=== PATIENT | female | born 1990 | race Caucasian/White ===

== ENCOUNTER 2019-04-26 14:57 | Observation (INO) | payer BC, OTHER ==
[2019-04-26] MEDS ORDERED: SODIUM CHLORIDE 0.9% 1,000 ML IV ONE (15:32)
--- NOTE | 2019-04-26 15:36 | ED ---
General Adult HPI - General Source: patient, RN notes reviewed Mode of arrival: ambulatory Limitations: no limitations <Franky Hutchins - Last Filed: 04/26/19 17:43> <Colleen Chen - Last Filed: 05/02/19 02:08> - General Chief complaint: Vaginal Bleeding Stated complaint: 18 weeks, vaginal bleeding Time Seen by Provider: 04/26/19 15:23 - History of Present Illness Initial comments: 28-year-old female currently 18 weeks with a last menstrual period of 12/13/2018 presents to the emergency department for a chief complaint of vaginal bleeding. Patient states she had some bright red spotting earlier this morning around 10 AM which then turned into a darker brown discharge. States that about an hour ago she started having heavier bleeding. Denies passing tissue. Patient states she has had a confirmed intrauterine . States she is due for her anatomy ultrasound next week. States she has been following with Dr. Anaya for this . Patient denies any complications at her past 2 pregnancies. Patient does admit to cramping lower abdominal and back pain. Patient has no other complaints at this time including shortness of breath, chest pain, nausea or vomiting, headache, or visual changes. (Franky Hutchins) - Related Data Home Medications Medication Instructions Recorded Confirmed Mtu-Josu-Shrlp Acid 1 cap PO DAILY 04/26/19 04/26/19 [-U Capsule (formulary)] Allergies Allergy/AdvReac Type Severity Reaction Status Date / Time No Known Allergies Allergy Verified 04/26/19 17:29 Review of Systems ROS Other: All systems not noted in ROS Statement are negative. <Franky Hutchins - Last Filed: 04/26/19 17:43> ROS Other: All systems not noted in ROS Statement are negative. <Colleen Chen - Last Filed: 05/02/19 02:08> ROS Statement: Those systems with pertinent positive or pertinent negative responses have been documented in the HPI. Past Medical History Past Medical History: No Reported History Additional Past Medical History / Comment(s): HX BLOOD IN STOOL, HX OF POLYPS History of Any Multi-Drug Resistant Organisms: None Reported Past Surgical History: No Surgical Hx Reported Additional Past Surgical History / Comment(s): COLONOSCOPY Past Anesthesia/Blood Transfusion Reactions: No Reported Reaction Past Psychological History: No Psychological Hx Reported Smoking Status: Never smoker Past Alcohol Use History: None Reported Past Drug Use History: None Reported - Past Family History Brother(s) History Unknown: Yes Additional Family Medical History / Comment(s): epilepsy <Franky Hutchins P - Last Filed: 04/26/19 17:43> General Exam Limitations: no limitations General appearance: alert, in no apparent distress Head exam: Present: atraumatic, normocephalic, normal inspection Eye exam: Present: normal appearance, PERRL, EOMI. Absent: scleral icterus, conjunctival injection, periorbital swelling ENT exam: Present: normal exam, mucous membranes moist Neck exam: Present: normal inspection, full ROM. Absent: tenderness, meningismus, lymphadenopathy Respiratory exam: Present: normal lung sounds bilaterally. Absent: respiratory distress, wheezes, rales, rhonchi, stridor Cardiovascular Exam: Present: regular rate, normal rhythm, normal heart sounds. Absent: systolic murmur, diastolic murmur, rubs, gallop, clicks GI/Abdominal exam: Present: soft, normal bowel sounds. Absent: distended, tenderness, guarding, rebound, rigid External exam: Present: normal external exam. Absent: erythema, swelling, lesions, lacerations, ecchymosis Speculum exam: Present: vaginal bleeding (Minimal vaginal bleeding, no significant hemorrhage.). Absent: normal speculum exam, erythema, vaginal discharge, cervical discharge, foreign body, tissue, laceration By manual exam: Present: normal by manual exam. Absent: cervical motion tenderness, adnexal tenderness, adnexal mass, uterine enlargement, uterine tenderness, other (Adrien BURKS present for exam) <Franky Hutchins P - Last Filed: 04/26/19 17:43> Course Vital Signs 04/26/19 04/26/19 15:04 17:02 Temperature 98.3 F 98.2 F Pulse Rate 111 H 92 Respiratory 18 16 Rate Blood Pressure 142/88 136/86 O2 Sat by Pulse 98 100 Oximetry Medical Decision Making - Lab Data Result diagrams: 04/26/19 15:41 04/26/19 15:41 <Franky Hutchins P - Last Filed: 04/26/19 17:43> - Lab Data Result diagrams: 04/27/19 06:15 04/26/19 15:41 <Colleen Chen - Last Filed: 05/02/19 02:08> - Medical Decision Making 28-year-old female currently 18 weeks presents for vaginal bleeding and cramping 6 dhours. Pelvic exam did reveal mild vaginal bleeding. CBC CMP unremarkable. Urine does show 182 red blood cells. 38 white blood cells are likely secondary to red blood cells however culture pending. Patient is O+, not a candidate for RhoGAM. Ultrasound reveals echogenic material at the cervical eyes extending towards the edge of the placenta. Marginal placental abruption hemorrhages felt to be most likely within the differential. This does not appear to be a placenta previa or marginal placenta. This was discussed with Dr. Wise, OB on-call for Dr. Anaya. At this time recommends admitting patient for monitoring. Dr. Chen spoke with patient about this and patient is agreeable to this. She is hemodynamically stable at this time with only minimal vaginal bleeding. (Franky Hutchins) I was available for consultation in the emergency department. The history and physical exam were done by the midlevel provider. I was consulted for this patients care. I reviewed the case with the midlevel provider and based on their presentation of the patient, I agree with the assessment, medical decision making and plan of care as documented. I evaluated the patient myself and spoke with Dr. Castillo who accepted admission. Chart was dictated using [employer] dictation software. Attempts were made to correct any dictation errors however some typographical errors may persist. (Colleen Chen) - Lab Data Lab Results 04/26/19 04/26/19 04/26/19 Range/Units 15:30 15:30 15:41 WBC (3.8-10.6) k/uL RBC (3.80-5.40) m/uL Hgb (11.4-16.0) gm/dL Hct (34.0-46.0) % MCV (80.0-100.0) fL MCH (25.0-35.0) pg MCHC (31.0-37.0) g/dL RDW (11.5-15.5) % Plt Count (150-450) k/uL Neutrophils % % Lymphocytes % % Monocytes % % Eosinophils % % Basophils % % Neutrophils # (1.3-7.7) k/uL Lymphocytes # (1.0-4.8) k/uL Monocytes # (0-1.0) k/uL Eosinophils # (0-0.7) k/uL Basophils # (0-0.2) k/uL Sodium (137-145) mmol/L Potassium (3.5-5.1) mmol/L Chloride (98-107) mmol/L Carbon Dioxide (22-30) mmol/L Anion Gap mmol/L BUN (7-17) mg/dL Creatinine (0.52-1.04) mg/dL Est GFR (CKD-EPI)AfAm (>60 ml/min/1.73 sqM) Est GFR (CKD-EPI)NonAf (>60 ml/min/1.73 sqM) Glucose (74-99) mg/dL Calcium (8.4-10.2) mg/dL Total Bilirubin (0.2-1.3) mg/dL AST (14-36) U/L ALT (9-52) U/L Alkaline Phosphatase (38-126) U/L Total Protein (6.3-8.2) g/dL Albumin (3.5-5.0) g/dL Urine Color Dark Red Urine Appearance Cloudy H (Clear) Urine pH 5.5 (5.0-8.0) Ur Specific [place] >1.050 H (1.001-1.035) Urine Protein 1+ H (Negative) Urine Glucose (UA) Negative (Negative) Urine Ketones Trace H (Negative) Urine Blood Large H (Negative) Urine Nitrite Negative (Negative) Urine Bilirubin Negative (Negative) Urine Urobilinogen <2.0 (<2.0) mg/dL Ur Leukocyte Esterase Small H (Negative) Urine RBC >182 H (0-5) /hpf Urine WBC 38 H (0-5) /hpf Ur Squamous Epith Cells 4 (0-4) /hpf Urine Bacteria Few H (None) /hpf Urine Mucus Many H (None) /hpf Urine HCG, Qual Detected (Not Detectd) Blood Type O Positive Blood Type Recheck O Pos Bld Type Recheck Status No 04/26/19 04/26/19 Range/Units 15:41 15:41 WBC 11.4 H (3.8-10.6) k/uL RBC 4.88 (3.80-5.40) m/uL Hgb 14.8 (11.4-16.0) gm/dL Hct 42.5 (34.0-46.0) % MCV 87.0 (80.0-100.0) fL MCH 30.4 (25.0-35.0) pg MCHC 34.9 (31.0-37.0) g/dL RDW 12.8 (11.5-15.5) % Plt Count 249 (150-450) k/uL Neutrophils % 74 % Lymphocytes % 20 % Monocytes % 4 % Eosinophils % 1 % Basophils % 0 % Neutrophils # 8.4 H (1.3-7.7) k/uL Lymphocytes # 2.3 (1.0-4.8) k/uL Monocytes # 0.4 (0-1.0) k/uL Eosinophils # 0.1 (0-0.7) k/uL Basophils # 0.0 (0-0.2) k/uL Sodium 137 (137-145) mmol/L Potassium 4.7 (3.5-5.1) mmol/L Chloride 105 (98-107) mmol/L Carbon Dioxide 24 (22-30) mmol/L Anion Gap 8 mmol/L BUN 7 (7-17) mg/dL Creatinine 0.61 (0.52-1.04) mg/dL Est GFR (CKD-EPI)AfAm >90 (>60 ml/min/1.73 sqM) Est GFR (CKD-EPI)NonAf >90 (>60 ml/min/1.73 sqM) Glucose 87 (74-99) mg/dL Calcium 9.6 (8.4-10.2) mg/dL Total Bilirubin 0.3 (0.2-1.3) mg/dL AST 22 (14-36) U/L ALT 32 (9-52) U/L Alkaline Phosphatase 93 (38-126) U/L Total Protein 6.9 (6.3-8.2) g/dL Albumin 4.0 (3.5-5.0) g/dL Urine Color Urine Appearance (Clear) Urine pH (5.0-8.0) Ur Specific [place] (1.001-1.035) Urine Protein (Negative) Urine Glucose (UA) (Negative) Urine Ketones (Negative) Urine Blood (Negative) Urine Nitrite (Negative) Urine Bilirubin (Negative) Urine Urobilinogen (<2.0) mg/dL Ur Leukocyte Esterase (Negative) Urine RBC (0-5) /hpf Urine WBC (0-5) /hpf Ur Squamous Epith Cells (0-4) /hpf Urine Bacteria (None) /hpf Urine Mucus (None) /hpf Urine HCG, Qual (Not Detectd) Blood Type Blood Type Recheck Bld Type Recheck Status Disposition Is patient prescribed a controlled substance at d/c from ED?: No Time of Disposition: 17:45 <Franky Hutchins - Last Filed: 04/26/19 17:43> <Colleen Chen - Last Filed: 05/02/19 02:08> Clinical Impression: Vaginal bleeding during Disposition: ADMITTED IP TO THIS HOSP Condition: Stable
[2019-04-26 15:52] LABS: Appearance,Urine Cloudy (Clear); Bacteria,Urine Few /hpf; Bilirubin,Urine Negative (Negative); Blood,Urine Large (Negative); Color,Urine Dark Red; Glucose,Urine (UA) Negative (Negative); Ketones,Urine Trace (Negative); Leukocyte Esterase,Urine Small (Negative); Mucus,Urine Many /hpf; Nitrite,Urine Negative (Negative); PH, Urine 5.5 (5.0-8.0); Protein,Urine 1+ (Negative); RBC,Urine >182 /hpf (0-5); Squamous Epithelial Cell,Urine 4 /hpf (0-4); Urobilinogen,Urine <2.0 mg/dL (<2.0); WBC,Urine 38 /hpf (0-5)
[2019-04-26 15:55] LABS: Specific Gravity,Urine >1.050 (1.001-1.035)
[2019-04-26 15:57] LABS: Basophils % (A) 0 %; Eosinophils # (A) 0.1 k/uL (0-0.7); Eosinophils % (A) 1 %; HCT 42.5 % (34.0-46.0); HGB 14.8 gm/dL (11.4-16.0); Lymphocytes # (A) 2.3 k/uL (1.0-4.8); Lymphocytes % (A) 20 %; MCH 30.4 pg (25.0-35.0); MCHC 34.9 g/dL (31.0-37.0); Mean Platelet Volume 5.8; Monocytes # (A) 0.4 k/uL (0-1.0); Monocytes % (A) 4 %; Neutrophils # (A) 8.4 k/uL (1.3-7.7); Neutrophils % (A) 74 %; Platelet Count 249 k/uL (150-450); RBC 4.88 m/uL (3.80-5.40); RDW 12.8 % (11.5-15.5); WBC 11.4 k/uL (3.8-10.6)
[2019-04-26 16:05] LABS: ALT 32 U/L (9-52); AST 22 U/L (14-36); African American GFR (CKD) >90 (>60 ml/min/1.73 sqM); Alkaline Phosphatase 93 U/L (38-126); Anion Gap 8 mmol/L; Blood Urea Nitrogen 7 mg/dL (7-17); Calcium 9.6 mg/dL (8.4-10.2); Carbon Dioxide 24 mmol/L (22-30); Chloride 105 mmol/L (98-107); Glucose 87 mg/dL (74-99); Non-African American GFR(CKD) >90 (>60 ml/min/1.73 sqM); Potassium 4.7 mmol/L (3.5-5.1); Sodium 137 mmol/L (137-145); Total Bilirubin 0.3 mg/dL (0.2-1.3); Total Protein 6.9 g/dL (6.3-8.2)
--- NOTE | 2019-04-26 16:44 | US ---
EXAMINATION TYPE: US OB >= 14 wk fetus DATE OF EXAM: 04/26/2019 COMPARISON: None CLINICAL HISTORY: pain, bleeding Patient states heavy bleeding today. TECHNIQUE: Transabdominal (TA) GESTATIONAL AGE / DATING Physician Established: (18 weeks/5 days) EDC: 09/22/2019 Dates by LMP: 12/16/2018 (18 weeks/5 days) EDC: 09/22/2019 Dates by First Scan: No previous this is first scan Dates by Current Scan: (18 weeks/5 days) EDC: 09/22/2019 SURVEY IUP: Single PLACENTA: Anterior PREVIA: No Previa JANEL: 11.7 cm Normal CERVICAL LENGTH (transabdominal: norm > 3.0cm): 4.3 cm BIOMETRY PRESENTATION: Breech BPD: 4.1 cm 18 weeks / 3 days HC: 15.9 cm 18 weeks / 5 days AC: 13.5 cm 19 weeks / 0 days FL: 2.9 cm 19 weeks / 1 days ESTIMATED WEIGHT IN GRAMS: 268.7 grams ESTIMATED WEIGHT IN LBS/OZ: 0 lbs. 9 oz. WEIGHT PERCENTAGE BASED ON ESTABLISHED DATES: 63.4% HC/AC: 1.2 Normal FL/AC: 21.9 Normal HEART RATE: 141 bpm RHYTHM: Normal Low level echo mass located near cervical os, uncertain etiology. There appears to be a small amount of fluid in cervical canal. Patient has been having heavy bleeding today. Marginal placenta or placenta previa does not appear to be present. This echogenic material overlying the cervical os could be related to hemorrhage. There are some images where echogenic material is ex tending from the placental edge which could be acute hemorrhage. A marginal placental abruption shou ld be considered. No retro-placental separation from the uterine wall is clearly identified. IMPRESSION: 1. Single intrauterine gestation estimated at 18 weeks 5 days gestation based on the current ultrasou nd measurements. Cardiac activity measures 141 bpm. 2. There is echogenic material at the cervical os. This extends towards the edge of the placenta. Mar ginal placental abruption hemorrhage is felt to be most likely within the differential. This does not appear to be a placenta previa or marginal placenta. Report was called and case discussed with AGUILA garces by Dr Ro [id number] 04-26-2019.
[2019-04-26] MEDS ORDERED: NALOXONE 0.4 MG/ML 1 ML VIAL IV PRN (17:42)
[2019-04-26] MEDS: SODIUM CHLORIDE 0.9% 1,000 ML IV SCH (18:53)
--- NOTE | 2019-04-26 19:39 | P.HPOB ---
History of Present Illness H&P Date: 04/26/19 Chief Complaint: Intrauterine at 18 weeks: Vaginal bleeding Patient is a 28-year-old at 18 weeks gestation who arrived through the emergency room complaining of vaginal bleeding. She relates that she was at work earlier today and had some scant bright red spotting that turned into brown discharge, however later in the afternoon she had a large gush of blood and then active what was considered heavy bleeding although she cannot define exactly amount. She came in through the emergency room and an ultrasound and evaluation was done. The ultrasound shows what appears to be in my estimation some blood within the cervix and extending up into the lower uterine segment area just above the cervical os. There is not appear to be any substantial abruption noted within the body of the uterus that I can see nor is read out. There is some questionable on the ultrasound findings of potentially a marginal abruption along one of the edges. At this time she has no significant active bleeding and she is essentially on modified bed rest in labor and delivery. She relates that she did not have any significant cramping or pain although if her body is noting that there is a clot near her cervical os she may get some cramping and passed hopefully just of the clot were made liquefied come out on its own as we have monitoring her here. There is a viable also noted at 18 weeks on ultrasound was normal heart rate. She denies other problems or, case with this nor has she had any significant problems or competitions with her other 2 pregnancies. Myself and Merry and her had a very detailed and dulce discussion about potential findings including the possibility that she ultimately could miscarry due to placental separation and that at 18 weeks or really would be nothing we can do to help stop this from occurring since she's not having contractions scissors no evidence of labor-like symptoms and there is also nothing new can really do to save the baby at 18 weeks as baby would not be able to live outside of the wound. However after reading the report and reviewing the films I am at least a little more optimistic that the area is stable at this time and with modified and continued bed rest we can at least extend the out for now and this may completely stabilize with rest. I did however discuss with them the possibility that this could continue to separate and she may end up having very heavy bleeding that might require some type of intervention. Past medical history is otherwise significant for ulcerative colitis for which she takes no medications Past surgical history none ALLERGIES none Family history of epilepsy in her brother and her mother had ovarian cancer at a very young age but is still living Social history she denies any social history and certainly denies any illicit drug use Assessment intrauterine at 18 weeks with vaginal bleeding questionable marginal abruption no evidence for placenta previa or marginal previa Plan observational care only at this time Past Medical History Past Medical History: No Reported History Additional Past Medical History / Comment(s): HX BLOOD IN STOOL, HX OF POLYPS History of Any Multi-Drug Resistant Organisms: None Reported Past Surgical History: No Surgical Hx Reported Additional Past Surgical History / Comment(s): COLONOSCOPY Past Anesthesia/Blood Transfusion Reactions: No Reported Reaction Past Psychological History: No Psychological Hx Reported Smoking Status: Never smoker Past Alcohol Use History: None Reported Past Drug Use History: None Reported - Past Family History Brother(s) History Unknown: Yes Additional Family Medical History / Comment(s): epilepsy Medications and Allergies Home Medications Medication Instructions Recorded Confirmed Type Wao-Hgoi-Ubfkt Acid 1 cap PO DAILY 04/26/19 04/26/19 History [-U Capsule (formulary)] Allergies Allergy/AdvReac Type Severity Reaction Status Date / Time No Known Allergies Allergy Verified 04/26/19 17:29 Exam Osteopathic Statement: *. No significant issues noted on an osteopathic structural exam other than those noted in the History and Physical/Consult. Vital Signs Temp Pulse Pulse Pulse Resp BP BP 04/26/19 18:45 98.1 F 96 16 132/79 04/26/19 18:38 103 H 132/79 04/26/19 17:02 98.2 F 92 16 136/86 04/26/19 15:04 98.3 F 111 H 18 142/88 Pulse Ox 04/26/19 18:45 98 04/26/19 18:38 98 04/26/19 17:02 100 04/26/19 15:04 98 Intake and Output 04/26/19 04/26/19 04/26/19 06:59 14:59 22:59 Other: Weight 109.769 kg - OBG Physical Exam Breast: both: normal (no masses) Abdomen: bowel sounds normal, no diffuse tenderness, no bruit present, no guarding noted, no hepatomegaly, no splenomegaly, no mass Vulva: both: normal Vagina: normal moisture, no discharge Cervix: no lesion, no discharge Uterus: normal size, normal contour Adnexa: both: normal Anus/Rectum: normal perianal skin, no rectal mass, no hemorrhoids, heme negative Results Result Diagrams: 04/26/19 15:41 04/26/19 15:41 Abnormal Lab Results - Last 24 Hours (Table) 04/26/19 04/26/19 Range/Units 15:30 15:41 WBC 11.4 H (3.8-10.6) k/uL Neutrophils # 8.4 H (1.3-7.7) k/uL Urine Appearance Cloudy H (Clear) Ur Specific [place] >1.050 H (1.001-1.035) Urine Protein 1+ H (Negative) Urine Ketones Trace H (Negative) Urine Blood Large H (Negative) Ur Leukocyte Esterase Small H (Negative) Urine RBC >182 H (0-5) /hpf Urine WBC 38 H (0-5) /hpf Urine Bacteria Few H (None) /hpf Urine Mucus Many H (None) /hpf
[2019-04-27 06:52] LABS: Basophils % (A) 0 %; Eosinophils # (A) 0.2 k/uL (0-0.7); Eosinophils % (A) 3 %; HCT 39.1 % (34.0-46.0); HGB 13.1 gm/dL (11.4-16.0); Lymphocytes % (A) 26 %; MCH 29.7 pg (25.0-35.0); MCHC 33.5 g/dL (31.0-37.0); MCV 88.5 fL (80.0-100.0); Mean Platelet Volume 6.2; Monocytes # (A) 0.4 k/uL (0-1.0); Monocytes % (A) 5 %; Neutrophils # (A) 4.9 k/uL (1.3-7.7); Neutrophils % (A) 64 %; Platelet Count 208 k/uL (150-450); RBC 4.42 m/uL (3.80-5.40); RDW 12.8 % (11.5-15.5); WBC 7.6 k/uL (3.8-10.6)
--- NOTE | 2019-04-27 08:26 | P.PN ---
Progress Note - Text Progress Note Date: 04/27/19 Please see dictated admission history and physical per Dr. Castillo. In brief summary this is a pleasant 28-year-old 3 para 2 female who is approximately 18 weeks gestation who is admitted yesterday afternoon with a significant amount of vaginal bleeding. Evaluation demonstrated no obvious abruption or placenta previa, however it was suspected that it was caused by marginal abruption. Patient's bleeding since admission has subsided she is not having any active bleeding at this time. I did auscultate bedside heart tones this morning and also verified cardiac activity by ultrasound. Merry and I rediscussed her clinical situation and she understands at this point is purely observational to ensure that she does not have any significant bleeding. Since her bleeding has subsided I did discuss going home today however she has 2 young children home and feels that she will overdo it home therefore it is best to continue watching her today as an inpatient and if bleeding continues to be minimal then discharge home tomorrow. I also discussed the unpredictability of this bleeding and the fact that this also can sometimes cause premature rupture membranes. She understands at this point the fetus is considered previable and that no medications or other intervention will help prevent this. Plan at this time is to continue observation, I am going to allow her to shower. If continues to do well/stable then discharge home tomorrow. All of this Merry's questions were answered.
[2019-04-27] MEDS: SODIUM CHLORIDE 0.9% 1,000 ML IV SCH (09:46)
[2019-04-27 23:52] VITALS: TEMP 97.1
--- NOTE | 2019-04-28 07:10 | P.PN ---
Progress Note - Text Progress Note Date: 04/28/19 Patient is resting without new complaints. She has some dark red bleeding yesterday, more overnight, but not a significant amount. Patient is not having any cramping. Bleeding is dark red in nature. Patient lives approximately 5 minutes away and she and I and her have discussed going home today. Patient will go home on modified bedrest. Follow-up Dr. Anaya on Wednesday. I did talk to her about indications to return to the hospital for.
--- NOTE | 2019-04-28 07:16 | P.DS ---
Providers Date of admission: 04/26/19 17:40 Expected date of discharge: 04/28/19 Attending physician: Yovanny Castillo Primary care physician: [facility] Course: Please see dictated H&P in regards to this patient's admission. Brief summary is a pleasant 28-year-old multigravida patient 18 weeks gestation who is admitted with episode of significant vaginal bleeding. Ultrasound showed no obvious abruption however there was some fluid in the cervix consistent with possible marginal abruption. Patient was admitted for observation. She continued has some dark red bleeding but no active bleeding. On the morning of hospital day #3 she is felt be stable for discharge home follow up with Dr. Anaya in approximately 3 days. Patient Condition at Discharge: Stable Plan - Discharge Summary New Discharge Prescriptions: No Action Mem-Bafx-Jiaau Acid [-U Capsule (formulary)] 1 cap PO DAILY Discharge Medication List Euz-Mmmj-Ohuuw Acid [-U Capsule (formulary)] 1 cap PO DAILY 04/26/19 [History] Follow up Appointment(s)/Referral(s): Scarlet Anaya DO [Doctor of Osteopathic Medicine] - 05/02/19 9:30 am Patient Instructions/Handouts: Threatened Miscarriage (DC) Activity/Diet/Wound Care/Special Instructions: No intercourse or anything per vagina. No strenuous activity, or heavy lifting. Please call or return to the hospital if any significant vaginal bleeding (as discussed), leaking of fluid, fever or chills. Please see Dr. Anaya on Wednesday at 9:30. Discharge Disposition: HOME SELF-CARE
[2019-04-28 07:41] VITALS: BP 129/66; PULSE 80; RESP 16
== END 2019-04-28 08:20 | disposition home or self-care (01) ==
LOC: EC 14:57 → 6PED 17:40 → 4FBP 18:29
PROVIDERS: ADMIT Obstetrics & Gynecology; ATTEND Obstetrics & Gynecology
DX: O20.9 Hemorrhage in early pregnancy, unspecified (principal); Z3A.18 18 weeks gestation of pregnancy; K51.90 Ulcerative colitis, unspecified, without complications; Z82.0 Family history of epilepsy and other diseases of the nervous system; Z80.41 Family history of malignant neoplasm of ovary
CPT/HCPCS: 96360; 96361; 99285; 36415; 86900; 86901; 80053; 85025 ×2; 81001; 81025; 87086; 76805; G0378 ×3

== ENCOUNTER → 2019-06-06 | Outpatient (CLI) | payer BC ==
[2019-06-06 11:24] LABS: HCT 41.2 % (34.0-46.0); HGB 13.9 gm/dL (11.4-16.0); MCH 30.6 pg (25.0-35.0); MCHC 33.8 g/dL (31.0-37.0); MCV 90.5 fL (80.0-100.0); Mean Platelet Volume 7.2; Platelet Count 221 k/uL (150-450); RBC 4.56 m/uL (3.80-5.40); RDW 13.2 % (11.5-15.5); WBC 9.6 k/uL (3.8-10.6)
== END | disposition home or self-care (01) ==
LOC: LABWHC1 09:10
PROVIDERS: ATTEND Obstetrics & Gynecology
DX: Z34.83 Encounter for supervision of other normal pregnancy, third trimester (principal)
CPT/HCPCS: 36415; 82950; 85027

== ENCOUNTER 2019-09-20 06:00 | Inpatient (IN) | payer BC ==
[2019-09-20] MEDS ORDERED: OXYTOCIN 10 UNIT/ML 1 ML VIAL IM PRN (06:35)
[2019-09-20] MEDS ORDERED: CARBOPROST TROMETHAMINE 250 MCG/ML 1 ML AMP IM PRN (06:35)
[2019-09-20] MEDS ORDERED: METHYLERGONOVINE 0.2 MG/ML 1 ML AMP IM PRN (06:35)
[2019-09-20] MEDS ORDERED: LIDOCAINE 0.5% (PF) 5 MG/ML (50 ML SDV) SQ PRN (06:35)
[2019-09-20] MEDS ORDERED: TERBUTALINE 1 MG/ML VIAL SQ PRN (06:35)
[2019-09-20] MEDS ORDERED: AMPICILLIN 2,000 MG in SODIUM CHLORIDE 0.9% 100 ML IVPB STA (06:41)
[2019-09-20] MEDS ORDERED: OXYTOCIN 30 UNITS/500 ML NS 30 UNIT in SALINE 1 500ML.BAG IV SCH (06:45)
[2019-09-20 06:47] LABS: Basophils % (A) 0 %; Eosinophils # (A) 0.1 k/uL (0-0.7); Eosinophils % (A) 1 %; HGB 14.7 gm/dL (11.4-16.0); Lymphocytes % (A) 16 %; MCH 30.5 pg (25.0-35.0); MCHC 34.2 g/dL (31.0-37.0); Mean Platelet Volume 7.3; Monocytes # (A) 0.7 k/uL (0-1.0); Monocytes % (A) 6 %; Neutrophils # (A) 9.5 k/uL (1.3-7.7); Neutrophils % (A) 75 %; Platelet Count 222 k/uL (150-450); RBC 4.83 m/uL (3.80-5.40); RDW 13.8 % (11.5-15.5); WBC 12.6 k/uL (3.8-10.6)
[2019-09-20] MEDS: LACTATED RINGERS 1,000 ML IV SCH ×2 (07:07→10:56)
[2019-09-20] MEDS ORDERED: ROPIVACAINE 100 MG, fentaNYL (PF) 200 MCG in SODIUM CHLORIDE 0.9% 76 ML EPIDURAL ONE (10:58)
[2019-09-20] MEDS ORDERED: AMPICILLIN 1,000 MG in SODIUM CHLORIDE 0.9% 50 ML IVPB SCH (11:00)
[2019-09-20] MEDS ORDERED: ACETAMINOPHEN TAB 325 MG TAB PO PRN (13:03)
[2019-09-20] MEDS ORDERED: BENZOCAINE/MENTHOL SPRAY 1 GM/SPRAY AEROSOL TOPICAL PRN (13:03)
[2019-09-20] MEDS ORDERED: HYDROCORTISONE 2.5% RECTAL CREAM 30 GM TUBE RECTAL PRN (13:03)
[2019-09-20] MEDS ORDERED: diphenhydrAMINE 25 MG CAP PO PRN (13:03)
[2019-09-20] MEDS ORDERED: LANOLIN CREAM 5 GM TUBE TOPICAL PRN (13:03)
[2019-09-20] MEDS ORDERED: diphenhydrAMINE 50 MG CAP PO PRN (13:03)
[2019-09-20] MEDS ORDERED: ZOLPIDEM 5 MG TAB PO PRN (13:03)
[2019-09-20] MEDS ORDERED: SIMETHICONE 80 MG CHEWABLE PO PRN (13:03)
[2019-09-20] MEDS ORDERED: diphenhydrAMINE 50 MG/ML 1 ML VIAL IVP PRN ×2 (13:03)
[2019-09-20] MEDS ORDERED: WITCH HAZEL 1 EACH MED..PAD TOPICAL PRN (13:03)
[2019-09-20] MEDS ORDERED: OXYTOCIN 20 UNITS/1000 ML NS 1,000 ML IV SCH (13:15)
[2019-09-20] MEDS ORDERED: SENNOSIDES-DOCUSATE SODIUM 1 EACH TAB PO SCH (20:00)
[2019-09-21] MEDS: IBUPROFEN 600 MG TAB PO PRN ×2 (00:33→07:55)
[2019-09-21 07:05] LABS: Basophils % (A) 0 %; Eosinophils # (A) 0.1 k/uL (0-0.7); Eosinophils % (A) 1 %; HCT 37.4 % (34.0-46.0); HGB 12.5 gm/dL (11.4-16.0); Lymphocytes # (A) 2.5 k/uL (1.0-4.8); Lymphocytes % (A) 25 %; MCH 30.3 pg (25.0-35.0); MCHC 33.4 g/dL (31.0-37.0); MCV 90.8 fL (80.0-100.0); Mean Platelet Volume 7.7; Monocytes # (A) 0.7 k/uL (0-1.0); Monocytes % (A) 7 %; Neutrophils # (A) 6.8 k/uL (1.3-7.7); Neutrophils % (A) 65 %; Platelet Count 218 k/uL (150-450); RBC 4.12 m/uL (3.80-5.40); RDW 13.9 % (11.5-15.5); WBC 10.4 k/uL (3.8-10.6)
--- NOTE | 2019-09-21 07:25 | P.HPOB ---
History of Present Illness H&P Date: 09/20/19 Chief Complaint: induction of labor. 29-year-old presents at 39 weeks and 4 days for induction of labor. Her cervix is 3 cm dilated, 70% effaced, and -2 station. She is frida irregularly. heart tones 140 with moderate variability and reactive. Review of Systems All systems: negative Constitutional: Denies chills, Denies fever Eyes: denies blurred vision, denies pain Ears, nose, mouth and throat: Denies headache, Denies sore throat Cardiovascular: Denies chest pain, Denies shortness of breath Respiratory: Denies cough Gastrointestinal: Denies abdominal pain, Denies diarrhea, Denies nausea, Denies vomiting Genitourinary: Denies dysuria, Denies hematuria Musculoskeletal: Denies myalgias Integumentary: Denies pruritus, Denies rash Neurological: Denies numbness, Denies weakness Psychiatric: Denies anxiety, Denies depression Endocrine: Denies fatigue, Denies weight change Past Medical History Past Medical History: No Reported History Additional Past Medical History / Comment(s): HX BLOOD IN STOOL, HX OF POLYPS. Obstetric history: She's had 2 previous vaginal deliveries. This is her third . She's had care with me since first trimester. Blood type is O+, abs negative, hepatitis B negative, rubella immune, GBS positive. History of Any Multi-Drug Resistant Organisms: None Reported Past Surgical History: No Surgical Hx Reported Additional Past Surgical History / Comment(s): COLONOSCOPY Past Anesthesia/Blood Transfusion Reactions: No Reported Reaction Past Psychological History: No Psychological Hx Reported Smoking Status: Never smoker Past Alcohol Use History: None Reported Past Drug Use History: None Reported - Past Family History Brother(s) History Unknown: Yes Additional Family Medical History / Comment(s): epilepsy Medications and Allergies Home Medications Medication Instructions Recorded Confirmed Type Jic-Olqv-Agpdm Acid 1 cap PO DAILY 04/26/19 09/20/19 History [-U Capsule (formulary)] Allergies Allergy/AdvReac Type Severity Reaction Status Date / Time No Known Allergies Allergy Verified 04/26/19 17:29 Exam Osteopathic Statement: *. No significant issues noted on an osteopathic structural exam other than those noted in the History and Physical/Consult. Vital Signs Temp Pulse Resp BP Pulse Ox 09/20/19 23:36 98 F 80 18 122/70 98 09/20/19 20:00 97.6 F 81 18 117/71 97 09/20/19 15:02 97.8 F 80 16 112/64 09/20/19 14:32 76 16 106/58 09/20/19 14:02 85 16 109/56 09/20/19 13:47 84 16 111/56 09/20/19 13:32 86 16 119/61 09/20/19 13:17 88 16 112/64 09/20/19 13:02 97.0 F L 94 16 111/57 99 Heart: Regular rate and rhythm Lungs: Clear to auscultation bilaterally Abdomen: Soft, nontender Extremities: Negative Homans sign Results Result Diagrams: 09/21/19 05:19 Assessment and Plan (1) Normal labor Current Visit: Yes Status: Acute Code(s): O80 - ENCOUNTER FOR FULL-TERM UNCOMPLICATED DELIVERY; Z37.9 - OUTCOME OF DELIVERY, UNSPECIFIED SNOMED Code(s): 30206813 Plan: 1. Induction of labor with amniotomy and Pitocin 2. Ampicillin for GBS prophylaxis 3. Anticipate normal vaginal delivery
--- NOTE | 2019-09-21 07:26 | P.PROBDLV ---
Vaginal Delivery Note - . Vaginal Delivery Note: 29-year-old presents at 39 weeks and 4 days for induction of labor. Her cervix is 3 cm dilated, 70% effaced, and -2 station. She is frida irregularly. heart tones 140 with moderate variability and reactive. Amniotomy was performed at 7:15 AM and meconium fluid was noted. Pitocin was also started. When she was 4-5 cm dilated she did get an epidural and was comfortable. Her cervix was completely dilated around 12:30 PM. She pushed, delivered a viable female over intact perineum under epidural anesthesia at 12:45 PM. Head delivered OA, nuchal cord 1 easily reduced, anterior shoulder delivered gentle downward guidance followed by posterior shoulder and rest of body. Nose and mouth bulb suctioned, cord clamped and cut, infant placed on mother's abdomen. Apgars 8, 10, weight 7 lbs. 11 oz. Placenta delivered spontaneously, intact with three-vessel cord at 12:48 PM. Vagina, cervix, and perineum were inspected. No lacerations noted. Estimated blood loss 200 mL mother and baby in stable condition.
--- NOTE | 2019-09-21 07:35 | P.DS ---
Providers Date of admission: 09/20/19 06:04 Expected date of discharge: 09/21/19 Attending physician: Scarlet Anaya Primary care physician: Stated None - Discharge Diagnosis(es) (1) Normal labor Current Visit: Yes Status: Resolved (2) Normal vaginal delivery Current Visit: Yes Status: Acute Hospital Course: Patient presented for induction of labor. She underwent a normal vaginal delivery. Her course was uncomplicated. She'll be discharged home day #1 in stable condition to follow-up with me in 6 weeks. Plan - Discharge Summary New Discharge Prescriptions: New Ibuprofen [Motrin] 600 mg PO Q6HR PRN #30 tab PRN Reason: Mild Pain Or Fever >= 100.5 No Action Xft-Mwlf-Shekg Acid [-U Capsule (formulary)] 1 cap PO DAILY Discharge Medication List Toj-Iywz-Boqee Acid [-U Capsule (formulary)] 1 cap PO DAILY 04/26/19 [History] Ibuprofen [Motrin] 600 mg PO Q6HR PRN #30 tab 09/21/19 [Rx] Follow up Appointment(s)/Referral(s): Scarlet Anaya DO [Doctor of Osteopathic Medicine] - 6 Weeks Discharge Disposition: HOME SELF-CARE
[2019-09-21 08:25] VITALS: BP 121/83; PULSE 48; RESP 16; TEMP 97.8
== END 2019-09-21 14:04 | disposition home or self-care (01) | DRG 807 ==
LOC: 4FBP 06:04
PROVIDERS: ADMIT Obstetrics & Gynecology; ATTEND Obstetrics & Gynecology
PROC: 00HU33Z Insertion of Infusion Device into Spinal Canal, Percutaneous Approach (ICD-10-PCS; principal; 2019-09-20)
PROC: 10907ZC Drainage of Amniotic Fluid, Therapeutic from Products of Conception, Via Natural or Artificial Opening (ICD-10-PCS; principal; 2019-09-20)
PROC: 3E033VJ Introduction of Other Hormone into Peripheral Vein, Percutaneous Approach (ICD-10-PCS; principal; 2019-09-20)
PROC: 3E0R3BZ Introduction of Anesthetic Agent into Spinal Canal, Percutaneous Approach (ICD-10-PCS; principal; 2019-09-20)
PROC: 10E0XZZ Delivery of Products of Conception, External Approach (ICD-10-PCS; principal; 2019-09-20)
DX: O69.81X0 Labor and delivery complicated by cord around neck, without compression, not applicable or unspecified (principal); Z37.0 Single live birth; O99.824 Streptococcus B carrier state complicating childbirth; K21.9 Gastro-esophageal reflux disease without esophagitis; O77.0 Labor and delivery complicated by meconium in amniotic fluid; Z3A.39 39 weeks gestation of pregnancy; O99.62 Diseases of the digestive system complicating childbirth; Z79.899 Other long term (current) drug therapy; Z87.19 Personal history of other diseases of the digestive system; Z82.0 Family history of epilepsy and other diseases of the nervous system
CPT/HCPCS: 85025; 86850; 86900; 86901

== ENCOUNTER 2023-03-11 20:27 | Emergency (ER) | payer BC ==
--- NOTE | 2023-03-11 21:20 | XR ---
EXAMINATION TYPE: XR chest 2V DATE OF EXAM: 03/11/2023 COMPARISON: None HISTORY: 32-year-old female with cough and fever TECHNIQUE: PA and lateral views FINDINGS: Heart normal size. Mild interstitial prominence. Aorta and pulmonary vasculature within normal limits . No consolidation or pleural effusion. IMPRESSION: Mild interstitial prominence may reflect bronchitis or asthma. No focal infiltrate.
[2023-03-11 22:01] VITALS: TEMP 99
[2023-03-11] MEDS ORDERED: diphenhydrAMINE 50 MG/ML 1 ML VIAL IVP STA (22:25)
[2023-03-11] MEDS ORDERED: DEXAMETHASONE SOD PHOSPHATE 10 MG/ML 1 ML VIAL IVP STA (22:25)
[2023-03-11] MEDS ORDERED: METOCLOPRAMIDE 5 MG/ML 2 ML VIAL IVP STA (22:25)
[2023-03-11] MEDS ORDERED: SODIUM CHLORIDE 0.9% 1,000 ML IV STA (22:25)
[2023-03-11] MEDS ORDERED: KETOROLAC 15 MG/ML 1 ML VIAL IVP STA (22:25)
[2023-03-11 23:52] LABS: Appearance,Urine Clear (Clear); Bacteria,Urine Rare /hpf; Bilirubin,Urine 2+ (Negative); Blood,Urine Moderate (Negative); Color,Urine Orange; Glucose,Urine (UA) Negative (Negative); Ketones,Urine Negative (Negative); Leukocyte Esterase,Urine Trace (Negative); Mucus,Urine Occasional /hpf; Nitrite,Urine Negative (Negative); Protein,Urine 1+ (Negative); RBC,Urine 39 /hpf (0-5); Specific Gravity,Urine 1.028 (1.001-1.035); Squamous Epithelial Cell,Urine <1 /hpf (0-4); WBC,Urine 4 /hpf (0-5)
[2023-03-12] MEDS ORDERED: AZITHROMYCIN 500 MG TAB PO STA (00:31)
--- NOTE | 2023-03-12 00:33 | ED ---
General Adult HPI - General Chief complaint: Fever Stated complaint: Fever Time Seen by Provider: 03/11/23 21:51 Source: patient Mode of arrival: ambulatory Limitations: no limitations - History of Present Illness Initial comments: Patient is a 32-year-old female who presents with Department complaining of fevers at home as well as cough and congestion and body aches for the last few days to week. Os is complaining of recurrent headache. States fevers have been up to 102F via forehead thermometer. Has not checked her temperature otherwise. She denies any chest pain but does endorse a nonproductive cough. Denies any abdominal pain, nausea, vomiting, diarrhea. No other acute complaints this time. No urinary complaints. Presents for further evaluation. - Related Data Home Medications Medication Instructions Recorded Confirmed Daz-Qjjt-Boudu Acid 1 cap PO DAILY 04/26/19 09/20/19 [-U Capsule (formulary)] Previous Rx's Medication Instructions Recorded Ibuprofen [Motrin] 600 mg PO Q6HR PRN #30 tab 09/21/19 Azithromycin [Zithromax] 250 mg PO DAILY 4 Days #4 tab 03/12/23 Allergies Allergy/AdvReac Type Severity Reaction Status Date / Time No Known Allergies Allergy Verified 03/11/23 21:03 Review of Systems ROS Statement: Those systems with pertinent positive or pertinent negative responses have been documented in the HPI. Review of Systems: CONST: Endorses fever EYES: Denies blurry vision ENT: Endorses cough C/V: Denies Chest pain RESP: Denies shortness of breath GI: Denies abdominal pain : Denies dysuria SKIN: Denies rash. MSK: Endorses body aches NEURO: Denies headache ROS Other: All systems not noted in ROS Statement are negative. Past Medical History Past Medical History: No Reported History Additional Past Medical History / Comment(s): HX BLOOD IN STOOL, HX OF POLYPS. Obstetric history: She's had 2 previous vaginal deliveries. This is her third . She's had care with me since first trimester. Blood type is O+, abs negative, hepatitis B negative, rubella immune, GBS positive. History of Any Multi-Drug Resistant Organisms: None Reported Past Surgical History: No Surgical Hx Reported Additional Past Surgical History / Comment(s): COLONOSCOPY Past Anesthesia/Blood Transfusion Reactions: No Reported Reaction Past Psychological History: No Psychological Hx Reported Smoking Status: Never smoker Past Alcohol Use History: None Reported Past Drug Use History: None Reported - Past Family History Brother(s) History Unknown: Yes Additional Family Medical History / Comment(s): epilepsy General Exam - General Exam Comments Initial Comments: General: Appears in no acute distress. Afebrile HEAD: Normal with no signs of head trauma. EYES: PERRLA, EOMI, conjunctiva normal, no discharge. ENT: Hearing grossly intact, normal oropharynx. RESPIRATORY: Clear breath sounds bilaterally. No wheezes, rales, or rhonchi. C/V: Regular rate and rhythm. S1 and S2 auscultated, no edema, peripheral pulses 2+ and intact throughout ABD: Abd is soft, nontender, nondistended EXT: Normal range of motion, no obvious deformity SKIN: No rashes or lesions observed on exposed skin. NEURO: Alert and oriented 4. No obvious focal deficits. NIH is 0. Limitations: no limitations Course Vital Signs 03/11/23 03/11/23 03/11/23 21:01 21:57 23:20 Temperature 99.6 F 99 F Pulse Rate 123 H 98 98 Respiratory 20 16 16 Rate Blood Pressure 122/85 136/86 125/83 O2 Sat by Pulse 97 97 97 Oximetry 03/11/23 03/12/23 23:55 00:38 Temperature Pulse Rate 104 H 96 Respiratory 16 18 Rate Blood Pressure 128/79 122/70 O2 Sat by Pulse 98 98 Oximetry Medical Decision Making - Medical Decision Making Was pt. sent in by a medical professional or institution ([facility] Nice, TRACTOR MECHANIC APPRENTICE, urgent care, hospital, or [facility]...) When possible be specific @ -No Did you speak to anyone other than the patient for history (EMS, parent, family, police, friend...)? What history was obtained from this source @ -No Did you review nursing and triage notes (agree or disagree)? Why? @ -I reviewed and agree with nursing and triage notes Were old charts reviewed (outside hosp., previous admission, EMS record, old EKG, old radiological studies, urgent care reports/EKG's, [facility] records)? Report findings @ -No old charts were reviewed Differential Diagnosis (chest pain, altered mental status, abdominal pain women, abdominal pain men, vaginal bleeding, weakness, fever, dyspnea, syncope, headache, dizziness, GI bleed, back pain, seizure, CVA, palpatations, mental health, musculoskeletal)? @ -Febrile illness, URI, bronchitis, pneumonia, COVID-19 infection, influenza infection, UTI. This list is not all-inclusive. EKG interpreted by me (3pts min.). @ -None done X-rays interpreted by me (1pt min.). @ -Chest x-ray reveals bronchitis CT interpreted by me (1pt min.). @ -None done U/S interpreted by me (1pt. min.). @ -None done What testing was considered but not performed or refused? (CT, X-rays, U/S, labs)? Why? @ -None What meds were considered but not given or refused? Why? @ -None Did you discuss the management of the patient with other professionals (professionals i.e. , PA, TRACTOR MECHANIC APPRENTICE, lab, RT, psych nurse, 7th grade social studies teacher, marine resource economist, teacher, maritime officer, leather case finisher)? Give summary @ -No Was smoking cessation discussed for >3mins.? @ -No Was critical care preformed (if so, how long)? @ -No Were there social determinants of health that impacted care today? How? (Homelessness, low income, unemployed, alcoholism, drug addiction, transportation, low edu. Level, literacy, decrease access to med. care, longterm, rehab)? @ -No Was there de-escalation of care discussed even if they declined (Discuss DNR or withdrawal of care, Hospice)? DNR status @ -No What co-morbidities impacted this encounter? (DM, HTN, Smoking, COPD, CAD, Cancer, CVA, ARF, Chemo, Hep., AIDS, mental health diagnosis, sleep apnea, morbid obesity)? @ -None Was patient admitted / discharged? Hospital course, mention meds given and route, prescriptions, significant lab abnormalities, going to OR and other pertinent info. @ -Based on the patient's presentation and physical exam, I do suspect a viral bronchitis for the patient but cannot rule out other etiology. She has a headache currently. We did discuss that she is currently afebrile that temporal thermometers are not as accurate as oral thermometers. Recommended obtaining an oral thermometer. She was this plan. She'll be given a migraine cocktail as well as we will obtain urinalysis, viral swabs, chest x-ray. She was in agreement this plan. Screening EKG will also be obtained as she states she occasionally feels palpitations. No chest pain. EKG unremarkable. Chest x-ray unremarkable other than for bronchitis. Viral swabs negative. Patient is currently on her and she'll cycle, and has no obvious signs of infection on urinalysis. On reevaluation, following migraine cocktail patient's feeling improved. She would like to go home. I believe this is reasonable. I did offer her azithromycin administration for bronchitis and she was in agreement this plan. I will provide the patient with a prescription for azithromycin. I instructed the patient to follow up with their PCP in the next 1-3 days. I explained that the patient should return to the emergency department if they experience any worsening symptoms. Strict return precautions were discussed with the patient. The patient expressed understanding of these instructions. I answered all questi ons that the patient had. The patient was discharged home in good condition with their prescriptions and follow up information. Undiagnosed new problem with uncertain prognosis? @ -No Drug Therapy requiring intensive monitoring for toxicity (Heparin, Nitro, Insulin, Cardizem)? @ -No Were any procedures done? @ -No Diagnosis/symptom? @ -Bronchitis, headache Acute, or Chronic, or Acute on Chronic? @ -Acute Uncomplicated (without systemic symptoms) or Complicated (systemic symptoms)? @ -Uncomplicated Side effects of treatment? @ -No Exacerbation, Progression, or Severe Exacerbation? @ -No Poses a threat to life or bodily function? How? (Chest pain, [place], CA, pneumonia, PE, COPD, DKA, ARF, appy, cholecystitis, CVA, Diverticulitis, Homicidal, Suicidal, threat to staff... and all critical care pts) @ -No - Lab Data Lab Results 03/11/23 03/11/23 03/11/23 Range/Units 21:05 23:00 23:00 Urine Color [place] Urine Appearance Clear (Clear) Urine pH 6.0 (5.0-8.0) Ur Specific [place] 1.028 (1.001-1.035) Urine Protein 1+ H (Negative) Urine Glucose (UA) Negative (Negative) Urine Ketones Negative (Negative) Urine Blood Moderate H (Negative) Urine Nitrite Negative (Negative) Urine Bilirubin 2+ H (Negative) Urine Urobilinogen 4.0 (<2.0) mg/dL Ur Leukocyte Esterase Trace H (Negative) Urine RBC 39 H (0-5) /hpf Urine WBC 4 (0-5) /hpf Ur Squamous Epith Cells <1 (0-4) /hpf Urine Bacteria Rare H (None) /hpf Urine Mucus Occasional H (None) /hpf Urine HCG, Qual Not Detected (Not Detectd) Influenza Type A (PCR) Not Detected (Not Detectd) Influenza Type B (PCR) Not Detected (Not Detectd) RSV (PCR) Not Detected (Not Detectd) SARS-CoV-2 (PCR) Not Detected (Not Detectd) - EKG Data -: EKG Interpreted by Me EKG Comments: 12-lead Electrocardiogram Interpretation Note EKG was reviewed and interpreted by myself. 12-lead ECG performed at 2250 is interpreted by me as revealing sinus tachycardia at a rate of 112 beats per minute. [place] is normal. CA interval is 164 ms, QRS duration is 92 ms, QTc is 361 ms.. There were no ST or T wave abnormalities to suggest myocardial ischemia or injury. R wave progression across the precordium was satisfactory. By my interpretation this EKG is non-diagnostic for acute ischemia. Disposition Clinical Impression: Bronchitis, Headache Disposition: HOME SELF-CARE Condition: Good Instructions (If sedation given, give patient instructions): Acute Bronchitis (ED) Prescriptions: Azithromycin [Zithromax] 250 mg PO DAILY 4 Days #4 tab Is patient prescribed a controlled substance at d/c from ED?: No Referrals: Da Bailey MD [Primary Care Provider] - 1-2 days Time of Disposition: 00:22
[2023-03-12 01:08] VITALS: BP 122/70; PULSE 96; RESP 18
== END 2023-03-12 00:45 | disposition home or self-care (01) ==
LOC: EC 20:27
DX: J40 Bronchitis, not specified as acute or chronic (principal); R51.9 Headache, unspecified; R00.0 Tachycardia, unspecified; Z20.822 Contact with and (suspected) exposure to COVID-19
CPT/HCPCS: 99284; 96374; 96375 ×3; 96361; 93005; 81001; 81025; 87636; 71046; J1200; J1100; J2765; J1885